=== PATIENT | female | born 1995 | race American Indian/Alaskan Native ===

== ENCOUNTER 2021-11-12 08:24 | Emergency (ER) | payer OTHER ==
[2021-11-12 08:28] VITALS: BP 114/72
--- NOTE | 2021-11-12 09:11 | Emergency Department Report ---
ED Female HPI - General Chief complaint: Urogenital-Female Stated complaint: MISSED PERIOD Time Seen by Provider: 11/12/21 08:42 Source: patient Mode of arrival: Ambulatory Limitations: No Limitations - History of Present Illness Initial comments: 26-year-old female presents to the ER today with concerns of missed period. Patient states that her last menstrual cycle was from September 28 through the . She had not had a menstrual cycle at all in October. She states that she has cramps like she is about to start her menstrual cycle but has not had any bleeding. She has not taken a home test. She is not currently on any control. She denies similar symptoms in the past. She reports no abnormal vaginal discharge or UTI symptoms. MD Complaint: other (Missed period) -: month(s) - Related Data Previous Rx's Medication Instructions Recorded Last Taken Type Mometasone Furoate [Nasonex] 17 gm NS DAILY #1 spray.pump 07/27/18 Unknown Rx Allergies Allergy/AdvReac Type Severity Reaction Status Date / Time No Known Allergies Allergy Verified 11/12/21 08:27 ED Review of Systems ROS: Stated complaint: MISSED PERIOD Other details as noted in HPI Comment: All other systems reviewed and negative Constitutional: denies: chills, fever Eyes: denies: eye pain, eye discharge, vision change ENT: denies: ear pain, throat pain Respiratory: denies: cough, shortness of breath, SOB with exertion, SOB at rest, wheezing Cardiovascular: denies: chest pain, palpitations Gastrointestinal: abdominal pain. denies: nausea, vomiting, diarrhea, constipation, hematemesis, melena, hematochezia Genitourinary: abnormal menses Musculoskeletal: denies: back pain, joint swelling, arthralgia Skin: denies: rash, lesions, change in color, change in hair/nails, pruritus Neurological: denies: headache, weakness, numbness, paresthesias, confusion, abnormal gait, vertigo Psychiatric: denies: anxiety, depression, auditory hallucinations, visual hallucinations, homicidal thoughts, suicidal thoughts ED Past Medical Hx - Social History Smoking Status: Never Smoker - Medications Home Medications: Home Medications Medication Instructions Recorded Confirmed Last Taken Type Mometasone Furoate [Nasonex] 17 gm NS DAILY #1 spray.pump 07/27/18 Unknown Rx ED Physical Exam - General Limitations: No Limitations General appearance: alert, in no apparent distress - Head Head exam: Present: atraumatic, normocephalic, normal inspection - Eye Eye exam: Present: normal appearance, PERRL, EOMI Pupils: Present: normal accommodation - Neck Neck exam: Present: normal inspection, full ROM. Absent: meningismus - Respiratory Respiratory exam: Present: normal lung sounds bilaterally - Cardiovascular Cardiovascular Exam: Present: regular rate - Neurological Exam Neurological exam: Present: alert, oriented X3, CN II-XII intact, normal gait - Psychiatric Psychiatric exam: Present: normal affect, normal mood - Skin Skin exam: Present: intact ED Course Vital Signs 11/12/21 08:26 Temperature 98.1 F Pulse Rate 88 Respiratory 18 Rate Blood Pressure 114/72 [Left] O2 Sat by Pulse 100 Oximetry Critical care attestation.: If time is entered above; I have spent that time in minutes in the direct care of this critically ill patient, excluding procedure time. ED Disposition Clinical Impression: Missed period Disposition: HOME / SELF CARE / HOMELESS Is pt being admited?: No Does the pt Need Aspirin: No Condition: Stable Instructions: Menstruation Additional Instructions: I recommend follow up with OBGYN for further evaluation of your missed period. If you do not have an [facility], 1 will provide for you on your discharge instructions below. You can take Tylenol and ibuprofen for any abdominal cramping. Return to the ER if your symptoms worsens or changes in any way. Referrals: PRIMARY CARE [Primary Care Provider] - 3-5 Days [facility] [Provider Group] - 3-5 Days [facility] [Provider Group] - 3-5 Days Forms: Work/School Release Form(ED) Time of Disposition: 09:57
[2021-11-12 09:35] LABS: Bilirubin,Urine NEG (Negative); Blood,Urine NEG (Negative); Color,Urine Straw (Yellow); Mucus,Urine FEW /HPF; Protein,Urine <15 mg/dL mg/dL (Negative); RBC,Urine < 1.0 /HPF (0.0-6.0); Urobilinogen,Urine < 2.0 mg/dL (<2.0)
[2021-11-12 09:53] LABS: HCG Qualitative,Urine Negative (Negative)
== END 2021-11-12 10:09 | disposition home or self-care (01) ==
LOC: ED 08:24
DX: N92.6 Irregular menstruation, unspecified (principal)
CPT/HCPCS: 81001; 81025; 99283

== ENCOUNTER 2022-01-16 16:59 | Emergency (ER) | payer OTHER | END 2022-01-17 03:10 | disposition left against medical advice (07) | LOC: ED 16:59 | DX: R51.9 Headache, unspecified (principal); Z53.21 Procedure and treatment not carried out due to patient leaving prior to being seen by health care provider ==

== ENCOUNTER 2022-02-28 11:39 | Outpatient (CLI) | payer MEDICAID ==
[2022-02-28 12:02] VITALS: BP 100/65
[2022-02-28] MEDS ORDERED: LACTATED RINGERS 500 ML IV ONE (12:15)
[2022-02-28 12:30] LABS: Bacteria,Urine 1+ /HPF (Negative); Bilirubin,Urine NEG (Negative); Blood,Urine NEG (Negative); Color,Urine Yellow (Yellow); Mucus,Urine 3+ /HPF
[2022-02-28] MEDS ORDERED: LIDOCAINE-MPF (1%) 10 MG/1 ML VIAL 5 ML INFILTRATI SCH (12:42)
[2022-02-28] MEDS ORDERED: ACETAMINOPHEN 500 MG TAB PO SCH (12:43)
== END 2022-02-28 13:46 | disposition home or self-care (01) ==
LOC: TRG 11:39 → APU 11:41 → TRG 13:46
PROVIDERS: ATTEND Obstetrics & Gynecology
DX: O60.02 Preterm labor without delivery, second trimester (principal); O26.892 Other specified pregnancy related conditions, second trimester; J00 Acute nasopharyngitis [common cold]; Z3A.19 19 weeks gestation of pregnancy
CPT/HCPCS: 81001; 96372; J0696; 96365

== ENCOUNTER 2022-05-28 17:50 | Outpatient (CLI) | payer MEDICAID ==
[2022-05-28 18:27] VITALS: BP 95/65
[2022-05-28 20:27] LABS: Basophils % (Auto) 0.2 % (0.0-1.8); Eosinophils # (Auto) 0.1 K/mm3 (0.0-0.4); Eosinophils % (Auto) 0.9 % (0.0-4.3); Hemoglobin 11.3 gm/dl (10.1-14.3); Lymphocytes % (Auto) 12.2 % (13.4-35.0); Mean Corpuscular HGB Conc 33 % (30-34); Mean Corpuscular Volume 88 fl (79-97); Monocytes # (Auto) 0.6 K/mm3 (0.0-0.8); Monocytes % (Auto) 6.8 % (0.0-7.3); Platelet Count 190 K/mm3 (140-440); Red Blood Count 3.85 M/mm3 (3.65-5.03); Red Cell Distribution Width 14.6 % (13.2-15.2)
[2022-05-28 21:21] LABS: Color,Urine Amber (Yellow)
[2022-05-28 21:25] LABS: Bacteria,Urine 1+ /HPF (Negative); Mucus,Urine 3+ /HPF
[2022-05-28] MEDS: LACTATED RINGERS 1,000 ML IV SCH (21:59)
[2022-05-28] MEDS ORDERED: TERBUTALINE 1 MG/1 ML INJ SUB-Q ONE (23:05)
[2022-05-29] MEDS ORDERED: NALOXONE 0.4 MG/1 ML INJ IV PRN (00:09)
[2022-05-29] MEDS ORDERED: ePHEDrine SULFATE 50 MG/1 ML INJ IV PRN (00:09)
[2022-05-29] MEDS ORDERED: fentaNYL-BUPIV 2 MCG/ML-0.125% 200 MCG/100 ML BAG EPIDURAL SCH (00:09)
--- NOTE | 2022-05-29 00:11 | Anesthesia Consultation ---
Anesthesia Consult and Med Hx Date of service: 05/28/22 - Airway Anesthetic Teeth Evaluation: Good ROM Head & Neck: Adequate Mental/Hyoid Distance: Adequate Mallampati Class: Class III Intubation Access Assessment: Probably Good - Pulmonary Exam CTA: Yes - Cardiac Exam Cardiac Exam: RRR - Pre-Operative Health Status ASA Pre-Surgery Classification: ASA3 Proposed Anesthetic Plan: Epidural - Pulmonary Hx Smoking: No Hx Asthma: No Hx Respiratory Symptoms: No SOB: No COPD: No Home Oxygen Therapy: No Hx Pneumonia: No Hx Sleep Apnea: No - Cardiovascular System Hx Hypertension: No Hx Coronary Artery Disease: No Hx Heart Attack/AMI: No Hx Angina: No Hx Percutaneous Transluminal Coronary Angioplasty (PTCA): No Hx Cardia Arrhythmia: No Hx Pacemaker: No Hx Internal Defibrillator: No Hx Valvular Heart Disease: No Hx Heart Murmur: No - Central Nervous System Hx Neuromuscular Disorder: No Hx Seizures: No CVA: No Hx Back Pain: No Hx Psychiatric Problems: No - Gastrointestinal Hx Ulcer: No Hx Gastroesophageal Reflux Disease: No - Endocrine Hx Renal Disease: No Hx End Stage Renal Disease: No Hx Cirrhosis: No Hx Liver Disease: No Hx Insulin Dependent Diabetes: No Hx Non-Insulin Dependent Diabetes: No Hx Thyroid Disease: No Hx Hypothyroidism: No Hx Hyperthyroidism: No - Hematic Hx Anemia: Yes Hx Sickle Cell Disease: No - Other Systems Hx Alcohol Use: No Hx Substance Use: No Hx Cancer: No Hx Obesity: Yes
--- NOTE | 2022-05-29 00:12 | Anesthesia Day of Surgery ---
Anesthesia Day of Surgery - Day of Surgery Patient Examined: Yes Patient H&P Reviewed: Yes Patient is NPO: Yes Beta Blockers: No Cardiac Clearance: No Pulmonary Clearance: No Bubba's Test: N/A
--- NOTE | 2022-05-29 01:28 | Ultrasound Report ---
Of the ultrasound INDICATION: weight FINDINGS: Single live intrauterine in cephalic position. BECKY measures 18.1 cm. Placenta is anterior grade one. heart rate is 1 50 bpm. There is funneling of the cervix with cervical cherie th 3.8 cm BPD measures 33 weeks 1 day. Head circumference 33 weeks 6 days. Abdominal circumference 30 weeks 3 d ays. Femoral length 29 weeks 5 days. weight 16 27 g. Ultrasound age 31 weeks 6 days. IMPRESSION: 1. Intrauterine with heart rate 150 bpm 2. Asymmetrical intrauterine growth retardation with head circumference measuring 33 weeks 6 days and femoral length 29 weeks 5 days. Clinical correlation and follow-up. 3. Short cervical length measures 0.8 cm with funneling. Some layering fluid is also seen. Signer Name: Alan Felix MD Signed: 05/29/2022 1:24 AM Workstation Name: [id number]
[2022-05-29] MEDS: LACTATED RINGERS 1,000 ML IV SCH (01:45)
[2022-05-29] MEDS ORDERED: NIFEdipine*For Tocolysis only* 10 MG CAPSULE PO STA (03:04)
== END 2022-05-29 03:43 | disposition home or self-care (01) ==
LOC: TRG 17:50 → APU 17:53 → LD 18:08 → TRG 05-29 03:43
PROVIDERS: ATTEND Obstetrics & Gynecology
DX: O62.9 Abnormality of forces of labor, unspecified (principal); O99.513 Diseases of the respiratory system complicating pregnancy, third trimester; R06.02 Shortness of breath; O99.213 Obesity complicating pregnancy, third trimester; E66.9 Obesity, unspecified; O99.013 Anemia complicating pregnancy, third trimester; D64.9 Anemia, unspecified; Z3A.32 32 weeks gestation of pregnancy
CPT/HCPCS: 36415; 76816; 76817; 81001; 85025; 87086; 96360; 96361; 96372; J3105; J7120; 59025

== ENCOUNTER 2022-05-29 12:36 | Observation (INO) | payer MEDICAID ==
[2022-05-29] MEDS ORDERED: LACTATED RINGERS 1,000 ML ONE (15:03)
[2022-05-29] MEDS ORDERED: LACTATED RINGERS 500 ML IV ONE (15:06)
[2022-05-29] MEDS ORDERED: BETAMET ACET/BETAMET NA PH 6 MG/ML INJ 5 ML MDV IM SCH ×2 (16:00→22:30)
[2022-05-29] MEDS ORDERED: BUTORPHANOL 2 MG/1 ML INJ IV PRN ×2 (18:14)
[2022-05-29] MEDS ORDERED: fentaNYL 100 MCG/2 ML INJ IV PRN (18:14)
[2022-05-29] MEDS ORDERED: ACETAMINOPHEN 325 MG TAB PO PRN (18:14)
[2022-05-29] MEDS ORDERED: ePHEDrine SULFATE 50 MG/1 ML INJ IV PRN (18:14)
[2022-05-29] MEDS ORDERED: METHYLERGONOVINE MALEATE 0.2 MG/ML VIAL IM PRN (18:14)
[2022-05-29] MEDS ORDERED: AMPICILLIN/NS 2 GM/100 ML 2 GM/100 ML BAG IV ONE ×2 (18:14→22:16)
[2022-05-29] MEDS ORDERED: OXYTOCIN 10 UNIT/1 ML INJ IM PRN (18:14)
[2022-05-29] MEDS ORDERED: CARBOPROST TROMETHAMINE 250 MCG/1 ML INJ IM PRN (18:14)
[2022-05-29] MEDS ORDERED: miSOPROStol 200 MCG TAB PR PRN (18:14)
[2022-05-29] MEDS ORDERED: MINERAL OIL 30 ML ORAL LIQD PO PRN (18:14)
[2022-05-29] MEDS ORDERED: TERBUTALINE 1 MG/1 ML INJ SUB-Q PRN (18:14)
[2022-05-29] MEDS ORDERED: LIDOCAINE (2%) 20 MG/1 ML VIAL 20 ML MDV INFILTRATI ONE (18:14)
[2022-05-29] MEDS ORDERED: LOPERAMIDE 2 MG CAP PO PRN (18:14)
[2022-05-29] MEDS ORDERED: LACTATED RINGERS 1,000 ML IV SCH (18:15)
[2022-05-29] MEDS ORDERED: OXYTOCIN DRIP 30 UNITS/500 ML BAG IV SCH ×2 (19:00)
[2022-05-29] MEDS ORDERED: SIMETHICONE 80 MG CHEW TAB PO PRN (21:30)
[2022-05-29] MEDS ORDERED: ONDANSETRON 4 MG/2 ML INJ IV PRN (21:30)
[2022-05-29] MEDS ORDERED: ALUM-MAG HYDROXIDE-SIMETHICONE 200-200-20MG/5ML ORAL LIQD 30 ML PO PRN (21:30)
[2022-05-29] MEDS ORDERED: DOCUSATE SODIUM 100 MG CAP PO PRN (21:30)
[2022-05-29 21:47] VITALS: BP 102/65
[2022-05-29] MEDS ORDERED: AMPICILLIN/NS 1 GM/50 ML 1 GM/50 ML BAG IV SCH (21:53)
--- NOTE | 2022-05-29 22:09 | Progress Note ---
Subjective Date of service: 05/29/22 Principal diagnosis: Labor Interval history: 26-year-old with EDC of July 22 at 32-2/7 weeks who presented to L&D 1 day ago for contractions. She was treated for contractions with terbutaline and discharged home. Patient was sent from the office today for Celestone injection. On arrival to triage, patient was noted to be gregg. She was given IV fluids. Vaginal exam was done, the cervix was fingertip and soft. Several hours after, the cervix was examined. The cervix was 1 cm dilated 50 % efface at -3 station.. Objective - Constitutional Vitals: Vital Signs - 12hr 05/29/22 05/29/22 05/29/22 13:41 13:42 13:46 Temperature 97.7 F Pulse Rate 94 H 86 87 Respiratory 18 Rate Blood Pressure 97/61 Blood Pressure 97/61 [Right] O2 Sat by Pulse 99 100 99 Oximetry 05/29/22 05/29/22 05/29/22 13:51 13:56 13:58 Temperature Pulse Rate 95 H 98 H 90 Respiratory Rate Blood Pressure Blood Pressure [Right] O2 Sat by Pulse 99 100 88 Oximetry 05/29/22 05/29/22 05/29/22 14:01 14:06 14:11 Temperature Pulse Rate 100 H 93 H 101 H Respiratory Rate Blood Pressure Blood Pressure [Right] O2 Sat by Pulse 99 100 100 Oximetry 05/29/22 05/29/22 05/29/22 14:16 14:21 14:25 Temperature Pulse Rate 98 H 80 100 H Respiratory Rate Blood Pressure Blood Pressure [Right] O2 Sat by Pulse 99 94 86 Oximetry 05/29/22 05/29/22 05/29/22 14:26 14:31 14:36 Temperature Pulse Rate 94 H 104 H 98 H Respiratory Rate Blood Pressure Blood Pressure [Right] O2 Sat by Pulse 99 99 100 Oximetry 05/29/22 05/29/22 05/29/22 14:40 14:41 14:46 Temperature Pulse Rate 95 H 101 H 96 H Respiratory Rate Blood Pressure Blood Pressure [Right] O2 Sat by Pulse 94 100 99 Oximetry 05/29/22 05/29/22 05/29/22 14:51 14:56 15:01 Temperature Pulse Rate 112 H 104 H 93 H Respiratory Rate Blood Pressure Blood Pressure [Right] O2 Sat by Pulse 99 100 100 Oximetry 05/29/22 05/29/22 05/29/22 15:06 15:11 15:14 Temperature Pulse Rate 92 H 93 H 95 H Respiratory Rate Blood Pressure Blood Pressure [Right] O2 Sat by Pulse 100 99 94 Oximetry 05/29/22 05/29/22 05/29/22 15:16 15:21 15:23 Temperature Pulse Rate 85 94 H 93 H Respiratory Rate Blood Pressure Blood Pressure [Right] O2 Sat by Pulse 100 99 94 Oximetry 05/29/22 05/29/22 05/29/22 15:26 15:31 15:36 Temperature Pulse Rate 93 H 90 99 H Respiratory Rate Blood Pressure Blood Pressure [Right] O2 Sat by Pulse 100 100 99 Oximetry 05/29/22 05/29/22 05/29/22 15:41 15:46 15:51 Temperature Pulse Rate 90 106 H 97 H Respiratory Rate Blood Pressure Blood Pressure [Right] O2 Sat by Pulse 97 98 99 Oximetry 05/29/22 05/29/22 05/29/22 15:56 16:01 16:06 Temperature Pulse Rate 104 H 87 93 H Respiratory Rate Blood Pressure Blood Pressure [Right] O2 Sat by Pulse 99 100 100 Oximetry 05/29/22 05/29/22 05/29/22 16:08 16:11 16:16 Temperature Pulse Rate 103 H 97 H 88 Respiratory Rate Blood Pressure Blood Pressure [Right] O2 Sat by Pulse 92 98 100 Oximetry 05/29/22 05/29/22 05/29/22 16:21 16:26 16:28 Temperature Pulse Rate 98 H 94 H 106 H Respiratory Rate Blood Pressure Blood Pressure [Right] O2 Sat by Pulse 100 99 94 Oximetry 05/29/22 05/29/22 05/29/22 16:31 16:36 16:39 Temperature Pulse Rate 106 H 102 H 103 H Respiratory Rate Blood Pressure Blood Pressure [Right] O2 Sat by Pulse 100 99 92 Oximetry 05/29/22 05/29/22 05/29/22 16:41 16:46 16:51 Temperature Pulse Rate 96 H 97 H 98 H Respiratory Rate Blood Pressure Blood Pressure [Right] O2 Sat by Pulse 98 96 99 Oximetry 05/29/22 05/29/22 05/29/22 16:56 17:01 17:06 Temperature Pulse Rate 94 H 105 H 97 H Respiratory Rate Blood Pressure Blood Pressure [Right] O2 Sat by Pulse 99 99 99 Oximetry 05/29/22 05/29/22 05/29/22 17:08 17:11 17:16 Temperature Pulse Rate 97 H 102 H Respiratory Rate Blood Pressure Blood Pressure [Right] O2 Sat by Pulse 88 83 L 97 Oximetry 05/29/22 05/29/22 05/29/22 17:18 17:21 17:26 Temperature Pulse Rate 103 H 105 H 85 Respiratory Rate Blood Pressure Blood Pressure [Right] O2 Sat by Pulse 92 98 100 Oximetry 05/29/22 05/29/22 05/29/22 17:31 17:36 17:41 Temperature Pulse Rate 99 H 90 109 H Respiratory Rate Blood Pressure Blood Pressure [Right] O2 Sat by Pulse 98 99 99 Oximetry 05/29/22 05/29/22 05/29/22 17:46 17:51 17:56 Temperature Pulse Rate 91 H 99 H 88 Respiratory Rate Blood Pressure Blood Pressure [Right] O2 Sat by Pulse 100 100 100 Oximetry 05/29/22 05/29/22 05/29/22 18:01 21:46 21:51 Temperature Pulse Rate 95 H 94 H 102 H Respiratory Rate Blood Pressure 102/65 Blood Pressure [Right] O2 Sat by Pulse 100 100 99 Oximetry 05/29/22 21:56 Temperature Pulse Rate 112 H Respiratory Rate Blood Pressure Blood Pressure [Right] O2 Sat by Pulse 100 Oximetry General appearance: Present: no acute distress - Respiratory Respiratory effort: normal Respiratory: bilateral: CTA - Cardiovascular Rhythm: regular Extremities: No edema - Gastrointestinal General gastrointestinal: Present: non-tender Medications & Allergies - Medications Allergies/Adverse Reactions: Allergies No Known Allergies Allergy (Verified 11/12/21 08:27) Home Medications: Home Medications Medication Instructions Recorded Confirmed Last Taken Type Mometasone Furoate [Nasonex] 17 gm NS DAILY #1 spray.pump 07/27/18 Unknown Rx Active Medications: Generic Name Dose Route Start Last Admin Trade Name Freq PRN Reason Stop Dose Admin Acetaminophen 650 mg 05/29/22 18:14 Acetaminophen 325 Mg Tab PO Q4H PRN Pain, Mild (1-3) Al Hydrox/Mg Hydrox/Simethicone 30 ml 05/29/22 21:30 Alum-Mag Hydroxide-Simethicone [phone]/5ml Oral Liqd 30 Ml PO Q6H PRN Indigestion Betamethasone Acet/Betameth SodPhos 12 mg 05/30/22 10:00 Betamet Acet/Betamet Na Ph 6 Mg/Ml Inj 5 Ml Mdv IM 05/30/22 23:00 ONCE JESSICA Docusate Sodium 100 mg 05/29/22 21:30 Docusate Sodium 100 Mg Cap PO Q12H PRN Constipation Lactated Ringer's 1,000 mls @ 125 mls/hr 05/29/22 18:15 Lactated Ringers IV DIRECT JESSICA Ampicillin Sodium 1 gm in 50 mls @ 100 mls/hr 05/29/22 21:53 Ampicillin/Ns 1 Gm/50 Ml IV 05/30/22 21:52 Q4H [facility] Multivitamins/Iron/Calcium 1 each 05/30/22 10:00 Rin25-Ho Fumarate-Folic Acid Vit Tab PO QDAY [facility] Ondansetron HCl 4 mg 05/29/22 21:30 Ondansetron 4 Mg/2 Ml Inj IV Q6H PRN Nausea And Vomiting Simethicone 80 mg 05/29/22 21:30 Simethicone 80 Mg Chew Tab PO Q6H PRN Gas pain Terbutaline Sulfate 0.25 mg 05/29/22 18:14 Terbutaline 1 Mg/1 Ml Inj SUB-Q ONCE PRN Hyperstimulation/Hypertonicity
--- NOTE | 2022-05-29 22:17 | History and Physical Report ---
History of Present Illness Date of examination: 05/29/22 Date of admission: 05/29/22 18:14 Chief complaint: Contractions History of present illness: 26-year-old with EDC of July 22 at 32-2/7 weeks who presented to L&D 1 day ago for contractions. She was treated for contractions with terbutaline and discharged home. Patient was sent from the office today for Celestone injection. On arrival to triage, patient was noted to be gregg. She was given IV fluids. Vaginal exam done at that time, the cervix was fingertip and soft. Several hours after, a vaginal exam was done. The cervix was 1 cm dilated 50 % efface at -3 station Past History Past Surgical History: no surgical history Family/Genetic History: diabetes Social history: no significant social history - Obstetrical History Expected Date of Delivery: 07/22/22 Actual Gestation: 32 Week(s) 2 Day(s) : 1 Para: 0 Medications and Allergies Allergies Allergy/AdvReac Type Severity Reaction Status Date / Time No Known Allergies Allergy Verified 11/12/21 08:27 Home Medications Medication Instructions Recorded Confirmed Last Taken Type Mometasone Furoate [Nasonex] 17 gm NS DAILY #1 spray.pump 07/27/18 Unknown Rx Active Meds: Active Medications Acetaminophen (Acetaminophen 325 Mg Tab) 650 mg PO Q4H PRN PRN Reason: Pain, Mild (1-3) Al Hydrox/Mg Hydrox/Simethicone (Alum-Mag Hydroxide-Simethicone [phone]/5ml Oral Liqd 30 Ml) 30 ml PO Q6H PRN PRN Reason: Indigestion Betamethasone Acet/Betameth SodPhos (Betamet Acet/Betamet Na Ph 6 Mg/Ml Inj 5 Ml Mdv) 12 mg IM ONCE JESSICA Stop: 05/29/22 22:31 Docusate Sodium (Docusate Sodium 100 Mg Cap) 100 mg PO Q12H PRN PRN Reason: Constipation Lactated Ringer's (Lactated Ringers) 1,000 mls @ 125 mls/hr IV DIRECT JESSICA Ampicillin Sodium (Ampicillin/Ns 1 Gm/50 Ml) 1 gm in 50 mls @ 100 mls/hr IV Q4H JESSICA Stop: 05/30/22 21:52 Ampicillin Sodium (Ampicillin/Ns 2 Gm/100 Ml) 2 gm in 100 mls @ 100 mls/hr IV ONCE ONE Stop: 05/29/22 23:15 Multivitamins/Iron/Calcium ( [id number]-Sr Fumarate-Folic Acid Vit Tab) 1 each PO QDAY JESSICA Ondansetron HCl (Ondansetron 4 Mg/2 Ml Inj) 4 mg IV Q6H PRN PRN Reason: Nausea And Vomiting Simethicone (Simethicone 80 Mg Chew Tab) 80 mg PO Q6H PRN PRN Reason: Gas pain Terbutaline Sulfate (Terbutaline 1 Mg/1 Ml Inj) 0.25 mg SUB-Q ONCE PRN PRN Reason: Hyperstimulation/Hypertonicity Review of Systems All systems: negative - Vital Signs Vital signs: Vital Signs Pulse BP Pulse Ox 94 H 97/61 99 05/29/22 13:41 05/29/22 13:41 05/29/22 13:41 Temp Pulse Resp BP Pulse Ox 97.7 F 99 H 18 102/65 99 05/29/22 13:42 05/29/22 22:06 05/29/22 13:42 05/29/22 21:46 05/29/22 22:06 - Physical Exam Lungs: Positive: Clear to auscultation Abdomen: Positive: normal appearance Genitourinary (Female): Positive: normal external genitalia, normal perenium Vulva: both: normal Uterus: Positive: enlarged Anus/Rectum: Positive: normal perianal skin Extremities: Positive: normal - Obstetrical FHR: category 1 Cervical Dilatation: 1 Cervical Effacement Percentage: 50 station: -3 Uterine Contraction Pattern: Irregular Results All other labs normal. Assessment and Plan IUP @ 32 2/7 weeks PTL S/p 1 dose of celestone Magnesium Sulfate 2nd dose of celestone due in am Antibiotics APA consult [place] Antibiotics
[2022-05-29] MEDS ORDERED: NIFEdipine*For Tocolysis only* 10 MG CAPSULE PO SCH (23:45)
[2022-05-30] MEDS ORDERED: PRENATAL VIT27-FE FUMARATE-FOLIC ACID VIT TAB PO SCH (10:00)
== END 2022-05-29 23:41 | disposition left against medical advice (07) ==
LOC: TRG 12:36 → APU 12:38 → TRG 18:54
PROVIDERS: ADMIT Obstetrics & Gynecology; ATTEND Obstetrics & Gynecology
DX: O60.03 Preterm labor without delivery, third trimester (principal); O62.9 Abnormality of forces of labor, unspecified; Z3A.32 32 weeks gestation of pregnancy
CPT/HCPCS: 96372; G0378; G0379; J0702; J7120